=== PATIENT | female | born 1995 | race Caucasian/White ===

== ENCOUNTER → 2017-11-08 12:02 | Outpatient (CLI) | payer BC, SELFPAY ==
[2017-11-08 13:53] LABS: Absolute Lymphocyte Count 1.78 X10^3/ul (0.83-4.51); Basophil# 0.02 X10^3/uL; Basophil% 0.3 % (0-1); Eosinophil# 0.14 X10^3/uL; Eosinophils% 2.2 % (0-5); Hemoglobin 15.6 g/dl (12.0-15.0); Lymphocyte # 1.78 X10^3/ul (4.0); Lymphocyte % 27.9 % (19-41); Mean Corp Hgb Conc 33.9 g/gl (32-36); Mean Corpuscular Hgb 30.9 pg (27.0-32.0); Mean Corpuscular Volume 91.1 fL (81-99); Mean Platelet Vol. 10.7 fl (6.2-12.0); Monocyte# 0.38 X10^3/uL; Neutrophil # 4.04 X10^3/uL (2.7-7.7); Neutrophil % 63.4 % (47-70); POSITIVE COUNT NO; POSITIVE DIFFERENTIAL NO; POSITIVE MORPHOLOGY NO; Platelet Count 219 K/mm3 (150-450); RBC Distribution Width CV 11.7 % (11.6-14.6); RBC Distribution Width SD 39.1 fl (35.1-43.9); Red Blood Count 5.05 M/mm3 (4.2-5.4); White Blood Count 6.4 K/mm3 (4.4-11.0)
[2017-11-08 14:08] LABS: ALB/GLOB Ratio 1.1 RATIO (0.9-2.4); AST(SGOT) 15 U/L (15-37); Alanine Aminotransfer ALT/SGPT 25 U/L (13-56); Albumin, Serum 4.1 g/dL (3.2-5.0); Alkaline Phosphatase 102 U/L (45-117); Anion Gap 9 (5-15); BUN 10 mg/dL (7-18); BUN/Creat Ratio 9.6 RATIO (10-20); Calcium,Total 8.9 mg/dL (8.5-10.1); Chloride 107 mmol/L (98-107); Creatinine, Serum 1.04 mg/dL (0.55-1.02); EST Glomerular Filtration Rate 72 mL/min (>60); Est Glom Filt Rate - Afr Amer 87 mL/min (>60); Ferritin 28 ng/mL (8-252); Globulin 3.9 g/dL (2.2-4.2); Glucose 83 mg/dL (74-106); Potassium 4.2 mmol/L (3.5-5.1); Sodium Level 141 mmol/L (136-145); T4 Free Direct 0.98 ng/dL (0.76-1.46)
[2017-11-09 09:08] LABS: T3 Total - Triiodothyronine 0.93 ng/mL (0.6-1.81)
== END ==
LOC: MTLAB 12:04
PROVIDERS: Family Provider Pediatrics; PCP Pediatrics; Visit Provider Dermatology Pediatric Dermatology
DX: L65.0 Telogen effluvium (principal); L64.8 Other androgenic alopecia
CPT/HCPCS: 36415; 80053; 82728; 84439; 84443; 84480; 85025

== ENCOUNTER 2018-04-17 15:18 | Emergency (ER) | payer BC, SELFPAY ==
[2018-04-17 15:19] VITALS: BP 131/79; PULSE 89; RESP 16; TEMP 37.3; O2SAT 98; BMI 28.5
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
[2018-04-17] MEDS: Ibuprofen 600 MG Tablet PO (16:11)
[2018-04-17 16:12] VITALS: BP 131/79; PULSE 89; RESP 18
== END 2018-04-17 16:23 | disposition home or self-care (01) ==
LOC: ED 16:16
PROVIDERS: Emergency Provider Emergency Medicine; Family Provider Pediatrics; PCP Pediatrics
DX: S16.1XXA Strain of muscle, fascia and tendon at neck level, initial encounter (principal); S20.312A Abrasion of left front wall of thorax, initial encounter; V43.53XA Car driver injured in collision with pick-up truck in traffic accident, initial encounter; Y93.I9 Activity, other involving external motion; Y92.410 Unspecified street and highway as the place of occurrence of the external cause; Y99.8 Other external cause status
CPT/HCPCS: 99283

== ENCOUNTER 2019-05-13 13:37 | Emergency (ER) | payer BC, SELFPAY ==
[2019-05-13 13:37] VITALS: BP 127/74; PULSE 106; RESP 18; TEMP 36.2; O2SAT 96; BMI 29.3
--- NOTE | 2019-05-13 13:51 | CT_ITS ---
STUDY: CT ABDOMEN AND PELVIS WITHOUT CONTRAST REASON FOR EXAM: Female, 23 years old. RIGHT FLANK PAIN -- HX-KS, OPEN HEART RADIATION DOSAGE (If Supplied By Facility): CTDIvol = ( 8.70 ) mGy, DLP = ( 437.08 ) mGycm TECHNIQUE: Transaxial images were obtained from the dome of the diaphragm to the symphysis pubis without oral contrast, and without intravenous contrast. Sagittal and coronal images were reconstructed. Individualized dose optimization techniques were used for this CT. COMPARISON: None. FINDINGS: The visualized lung bases are unremarkable. Small calcification projecting in the right ventricle is stable. Normal liver. Normal gallbladder and extrahepatic biliary system. Normal spleen. Normal pancreas. Normal bilateral adrenal glands. Trace right hydronephrosis with a 4 mm calculus in the proximal right ureter (evident on administration vice president topogram at L3 transverse process level). Additional punctate calculus of the right kidney evident on image 71 measures 2 mm. Left kidney is unremarkable without demonstrated hydronephrosis. Normal visualized stomach. Normal small intestine. Normal colon. The appendix is visualized and appears normal. Normal abdominal aorta. Normal inferior vena cava. Normal retroperitoneum. Normal urinary bladder. IUD is noted within the uterus. Naval ring noted. Normal osseous structures. CT/Abdomen/Pelvis without Cont IMPRESSION: 1. Proximal right ureter calculus (4 mm) with trace hydronephrosis. 2. Additional 2 mm right renal collecting system/calyceal calculus. Electronically Signed: Adelfo Sylvester MD ([place]) at 15:33 EST , Service support ,
--- NOTE | 2019-05-13 14:22 | ED.DCSUM_ITS ---
History of Present Illness Chief Complaint: Flank Pain Informant: Patient Onset: Weeks Maximum Severity: Mild Narrative: Patient presents complaining of a mild right flank pain for about 2 weeks, her periods have been on time her bowel bladder habits have generally normal. She decayed she believes is from a kidney stone that she had kidney stones 2 or 3 times in the past and she has passed them each time did not follow-up with urology as instructed. The pain persisted and she presents for evaluation her menstrual cycle terminated 3 days ago she denies any possibly she is otherwise not ill normal bowel bladder habits and no other history Past Medical History - Allergies and Home Meds Allergies/Adverse Reactions: Allergies No Known Allergies Allergy (Verified 05/13/19 13:39) Primary Care Physician: Omar Phillips MD [Primary Care Provider] - Past Medical History: - Surgical History: - - Repair of congenital heart disease Smoking Status: Never smoker Review of Systems ROS: - Kidney stones General: Denies: Chills, Fever, Sweats Eyes: Denies: Visual changes - bilaterally, Diplopia ENT: Denies: Rhinorrhea, Sore throat Cardiovascular: Denies: Chest pain, Palpitations Respiratory: Denies: Dyspnea, Cough, Dyspnea on exertion Gastrointestinal: Denies: Abdominal pain, Nausea, Vomiting, Diarrhea, Melena, Hematochezia Genitourinary: Denies: Dysuria, Hematuria, Frequency Musculoskeletal: Reports: Back pain. Denies: Extremity Pain Skin: Denies: Rash, Wounds Neurological: Denies: Headache, Weakness, Numbness Physical Exam Vital Signs/Narrative: Vital Signs Temp Pulse Resp BP Pulse Ox 05/13/19 13:37 97.1 F L 106 H 18 127/74 H 96 General: Well nourished, Well developed, No Acute Distress Head: Normocephalic, Atraumatic Eyes: Perrl, EOMI ENT: Moist mucous membranes, No rhinorrhea Neck: Supple, Nontender Cardiovascular: Regular rate, Regular rhythm, No murmurs Respiratory: No distress, CTA bilaterally, Chest nontender Abdomen: Soft, Nontender, Nondistended, Normal bowel sounds Back: Nontender, Normal Inspection Extremities: Nontender, No edema Skin: Normal color, No rash Neurological: Alert, Oriented x3, Cranial nerves II-XII grossly intact, Normal Strength, Normal Sensation Psychological: Normal affect, Normal Mood Diagnostic/Tx/Re-eval - Medical Decision Making Patient is a very mild pain to the right upper back, there is no abdominal pain she denies as she just completed her normal menstrual cycle at this time screening ED evaluation CT pain management The patient screening labs are generally unremarkable except there is signs of hematuria on the UA the abdominal flank CT and pulmonary report appears to reveal hydronephrosis and kidney stone on the right Evaluation she is resting company in the bed explained the test results to her the concept of kidney stone hydronephrosis she will be started on Naprosyn and [place] as needed she has never followed up with urology as instructed but she is instructed follow-up with urology and she states she will do so and return for change in symptoms, the final CT report will be on the computer when it is available Home stable Final impression right flank pain, kidney stone hematuria ED Disposition - Plan for ED Patient: Diagnosis: Kidney stone on right side Instructions: KIDNEY STONE w/ Colic, FLANK PAIN, Uncertain Cause Prescriptions: Naproxen [Naprosyn] 500 mg PO BID PRN #20 tab Prescription Printed Hydrocodone Bitart/Apap 5-325 [[place] 5MG-325MG] 1 tab PO Q6H PRN PRN 3 Days #10 tab PRN Reason: Pain Prescription Printed Referrals: Omar Phillips MD [Primary Care Provider] -
[2019-05-13] MEDS: 0.9% Normal Saline 1,000 ML 250 ML IV (14:24)
[2019-05-13 14:29] LABS: Mucous, Urine 0 SEEN /hpf (<or=2+); Squamous Epithelial Cells - UA 0 SEEN /hpf (5-10)
[2019-05-13] MEDS: morphine 8 MG/ML Syringe IV (14:29)
[2019-05-13] MEDS: Ondansetron 4 MG/2 ML Vial IV (14:29)
[2019-05-13 14:30] LABS: Absolute Neutrophil Count 5.2 X10^3/uL (2.0-7.7); Basophil# 0.04 X10^3/uL; Basophil% 0.5 % (0-1); Eosinophil# 0.25 X10^3/uL; Eosinophils% 3.1 % (0-5); Hematocrit 47.2 % (37-47); Hemoglobin 15.8 g/dL (12.0-15.0); Lymphocyte % 23.4 % (19-41); Mean Corp Hgb Conc 33.5 g/dL (32-36); Mean Corpuscular Hgb 31.5 pg (27.0-32.0); Mean Platelet Vol. 10.2 fl (6.2-12.0); Monocyte# 0.71 X10^3/uL; Monocyte% 8.8 % (0-10); NRBC Flagged by Analyzer 0 % (0-5); Neutrophil # 5.19 X10^3/uL (2.7-7.7); Platelet Count 250 K/mm3 (150-450); RBC Distribution Width CV 11.7 % (11.6-14.6); RBC Distribution Width SD 40.1 fl (35.1-43.9); Red Blood Count 5.02 M/mm3 (4.2-5.4); White Blood Count 8.1 K/mm3 (4.4-11.0)
[2019-05-13 14:31] LABS: Color, Urine Brown (Yellow); Glucose, Dipstick Normal (Normal); Ketone-Dipstick 5 mg/dl (Negative); Leukocyte Esterase-Dipstick 25 /ul (Negative); Nitrite-Dipstick Positive (Negative); Occult Blood-Urine 250 /ul (Negative); Protein-Dipstick 30 mg/dl (Negative); Specific Gravity, Urine 1.025 (1.002-1.030); Urine Bilirubin Dipstick Negative (Negative); Urine Clarity Cloudy (Clear); Urine Urobilinogen Normal (Normal)
[2019-05-13 14:35] LABS: Internal QC Validated? YES +Cl - CLEAR BKGD; Pregnancy, Serum, hCG Quali. NEGATIVE Negative
[2019-05-13 14:41] LABS: Bacteria 2+ /hpf (None Seen); Calcium Oxalate Crystals Ur 1+ /hpf (<or=2+); Red Blood Cells-Urine 50-100 SEEN /hpf (0-5); White Blood Cells 0-5 SEEN /hpf (0-5); Yeast-Urine 3+ /hpf (None Seen)
[2019-05-13 14:43] LABS: Anion Gap 6 (5-15); BUN 12 mg/dL (7-18); BUN/Creat Ratio 10.5 RATIO (10-20); Calcium,Total 9.5 mg/dL (8.5-10.1); Chloride 110 mmol/L (98-107); Creatinine, Serum 1.14 mg/dL (0.55-1.02); EST Glomerular Filtration Rate 64 mL/min (>60); Est Glom Filt Rate - Afr Amer 77 mL/min (>60); Estimated Creatinine Clearance 64.57 ml/min; Glucose 86 mg/dL (74-106); Potassium 4.1 mmol/L (3.5-5.1); Sodium Level 139 mmol/L (136-145)
[2019-05-13 15:14] VITALS: BP 108/62; PULSE 67; RESP 15
[2019-05-13] MEDS: 0.9% Normal Saline 1,000 ML 999 ML IV (15:14)
--- NOTE | 2019-05-13 15:35 | ED.VISSUMM ---
- ER Visit Summary Date of Service: 05/13/19 Chief Complaint: [] History of Present Illness: The patient is a 23 F [] Physical Examination: [] Test Results: [] Emergency Department Course and Treatment: [] Treatment Plan: [] Disposition: [] Impression: [] This note was generated with [employer] dictation software. It may contain incorrect words, spelling, and punctuation that were not noted in review of the chart prior to signing ED Disposition - Plan for ED Patient: Diagnosis: Kidney stone on right side Instructions: FLANK PAIN, Uncertain Cause, KIDNEY STONE w/ Colic Prescriptions: Naproxen [Naprosyn] 500 mg PO BID PRN #20 tab Prescription Printed Hydrocodone Bitart/Apap 5-325 [[place] 5MG-325MG] 1 tab PO Q6H PRN PRN 3 Days #10 tab PRN Reason: Pain Prescription Printed Referrals: Omar Phillips MD [Primary Care Provider] - Remy Esteban MD [STAFF PHYSICIAN] -
--- NOTE | 2019-05-13 15:44 | ED.DEP ---
ED Disposition - Plan for ED Patient: Diagnosis: Kidney stone on right side Instructions: FLANK PAIN, Uncertain Cause, KIDNEY STONE w/ Colic Prescriptions: Tamsulosin HCl [Flomax] 0.4 mg PO DAILY #7 cap Prescription Printed Naproxen [Naprosyn] 500 mg PO BID PRN #20 tab Prescription Printed Hydrocodone Bitart/Apap 5-325 [[place] 5MG-325MG] 1 tab PO Q6H PRN PRN 3 Days #10 tab PRN Reason: Pain Prescription Printed Referrals: Remy Esteban MD [STAFF PHYSICIAN] - Omar Phillips MD [Primary Care Provider] -
[2019-05-13 16:00] VITALS: PULSE 70; RESP 16
== END 2019-05-13 16:02 | disposition home or self-care (01) ==
PROVIDERS: Emergency Provider Emergency Medicine; PCP Family Medicine
DX: N13.2 Hydronephrosis with renal and ureteral calculous obstruction (principal); R31.9 Hematuria, unspecified; Z87.442 Personal history of urinary calculi
CPT/HCPCS: 74176; 80048; 81001; 84703; 85025; 96361; 96374; 96375; 99283; J7030; A4216; J2405

== ENCOUNTER 2021-03-27 10:16 | Emergency (ER) | payer OTHER, SELFPAY ==
[2021-03-27 10:17] VITALS: BP 141/79; PULSE 83; RESP 17; TEMP 36.1; O2SAT 98; BMI 22.1
--- NOTE | 2021-03-27 11:05 | EDS_ITS ---
HPI History of Present Illness Chief Complaint: Syncope Narrative Narrative: Patient presents because of syncopal episode that she experienced last evening at around 8:15 PM, approximately 15 hours ago. She states that she has had problems with syncope over the last 2 years. The year before, she only passed out a few times. However, she states that she passed out 3-4 times this year. When she passed out last evening, she did not injure herself. She presents saying I think I am anemic. She does have an IUD in place, and used to have regular menses, however she has not had menstruation in the last month. She denies any prodromal symptoms such as chest pain or shortness of breath, but states that when she stands up at times she feels lightheaded, and it takes her approximately 15 seconds to steady herself when she stands up. At times she passes out for 1 to 2 seconds, but last evening she must of only passed out for 5 to 6 seconds. She has not followed up with her primary care physician regarding this. She denies any fevers or chills, no nausea or vomiting, no fernando rtness of breath, no other symptoms. Of note, she states that she did test positive for Covid on Tuesday, approximately 7 days ago. Her only symptom was lost of taste and smell which she is regaining. 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 HEENT: No sore throat. No neck pain. No loss of vision. No rhinorrhea. Cardiovascular: No chest pain. No palpitations. No pedal edema. Respiratory: No cough, no shortness of breath. Abdominal: No abdominal pain. No nausea. No vomiting. Genitourinary: No dysuria. No hematuria. Musculoskeletal: No myalgias. No arthralgias. Neurologic: No headaches. No dizziness. Occasion lightheadedness. Positive syncopal episode for 5 to 6 seconds yesterday. Skin: No rash. No change in color. Psychiatric: No depression. No anxiety. I think I am anemic. EXAM Physical Exam Narrative Exam Narrative: Afebrile. Vital signs noted. HEENT: Normocephalic. Atraumatic. PERRL, EOMI. Neck soft and supple. No point tenderness or step off. Cardiovascular: Regular rate and rhythm. No murmurs, rubs, or gallops appreciated. Respiratory: No tachypnea. Lungs clear to auscultation bilaterally. Gastrointestinal: Abdomen soft, nontender, with normoactive bowel sounds. No rebound or guarding. Neurological: Awake. Alert. Nonfocal, nonlateralizing. Able to transfer from chair to bed and ambulate. Skin: No rash. Normal color. No pallor. Musculoskeletal: No pedal edema. Full range of motion extremities. Const Vital Signs: 03/27/21 10:17 03/27/21 12:14 03/27/21 12:18 Temperature 96.9 F L Temperature Source Temporal Pulse Rate 83 74 Pulse Rate [Lying] 58 L Pulse Rate [Sitting] 64 Pulse Rate [Standing] 74 Respiratory Rate 17 16 Blood Pressure 141/79 H 128/64 H Blood Pressure [Lying] 113/64 Blood Pressure [Sitting] 113/66 Blood Pressure [Standing] 128/64 H Blood Pressure Mean 99 85 Blood Pressure Mean [Lying] 80 Blood Pressure Mean [Sitting] 81 Blood Pressure Mean [Standing] 85 Pulse Ox 98 98 Oxygen Delivery Method Room Air Room Air MDM MDM MDM Narrative Medical decision making narrative: Comprehensive work-up was pursued. EKG demonstrates normal sinus rhythm/bradycardia at 57 bpm with a sinus arrhythmia, no acute ST changes. QTc is normal at 381. She is not anemic and has a hemoglobin of 16.4, no elevated white count. Electrolyte panel shows chloride slightly elevated at 108, otherwise unremarkable. Serum is negative. Urinalysis is also negative. At this point in time, I am unsure as to the cause of her reported syncope, but I feel that she can be discharged safely home with follow-up. Return instructions to the emergency department were reviewed. Disposition is discharged home in stable condition. Lab Data Attestation: I reviewed the patient's lab results. Labs: Laboratory Results - last 24 hr 03/27/21 03/27/21 03/27/21 11:30 11:30 11:30 WBC 5.8 RBC 5.18 Hgb 16.4 H Hct 47.9 H MCV 92.5 MCH 31.7 MCHC 34.2 RDW Std Deviation 39.5 RDW Coeff of [place] 11.6 Plt Count 231 MPV 10.7 Immature Gran % (Auto) 0.300 Neut % (Auto) 68.9 Lymph % (Auto) 22.8 [place] % (Auto) 5.4 Eos % (Auto) 2.3 Baso % (Auto) 0.3 Absolute Neuts (auto) 4.0 Absolute Lymphs (auto) 1.31 Nucleated RBC % 0 Sodium 138 Potassium 3.6 Chloride 108 H Carbon Dioxide 25.0 Anion Gap 5 BUN 9 Creatinine 0.90 Estim Creat Clear Calc 80.42 Est GFR (MDRD) Af Amer 100 Est GFR (MDRD) Non-Af 82 BUN/Creatinine Ratio 10.0 Glucose 100 Calcium 9.5 Serum , Qual NEGATIVE Urine Color Urine Clarity Urine pH Ur Specific [place] Urine Protein Urine Glucose (UA) Urine Ketones Urine Occult Blood Urine Nitrite Urine Bilirubin Urine Urobilinogen Ur Leukocyte Esterase Urine RBC Urine WBC Ur Squamous Epith Cells Urine Bacteria Urine Mucus 03/27/21 11:45 WBC RBC Hgb Hct MCV MCH MCHC RDW Std Deviation RDW Coeff of [place] Plt Count MPV Immature Gran % (Auto) Neut % (Auto) Lymph % (Auto) [place]kinson % (Auto) Eos % (Auto) Baso % (Auto) Absolute Neuts (auto) Absolute Lymphs (auto) Nucleated RBC % Sodium Potassium Chloride Carbon Dioxide Anion Gap BUN Creatinine Estim Creat Clear Calc Est GFR (MDRD) Af Amer Est GFR (MDRD) Non-Af BUN/Creatinine Ratio Glucose Calcium Serum , Qual Urine Color Yellow Urine Clarity Clear Urine pH 6.0 Ur Specific [place] 1.010 Urine Protein Negative Urine Glucose (UA) Normal Urine Ketones Negative Urine Occult Blood Negative Urine Nitrite Negative Urine Bilirubin Negative Urine Urobilinogen Normal Ur Leukocyte Esterase Negative Urine RBC 0 SEEN Urine WBC 0 SEEN Ur Squamous Epith Cells 0-5 SEEN Urine Bacteria 0 SEEN Urine Mucus 0 SEEN Discharge Plan Triage Chief Complaint: Syncope ED Provider: Chidi Marroquin Dx/Rx/DC Orders Clinical Impression: Syncope Instructions: ED Fainting, Uncertain Cause Prescriptions: No Action Mirena 20 mcg/24 hours (6 yrs) 52 mg intrauterine device 1 device intrauterine ONCE RF: 0 Primary Care Provider: Dino Mills Referrals: Dino Mills MD [Primary Care Provider] - 03/30/21 Disposition Disposition: Home, Self Care
--- NOTE | 2021-03-27 11:05 | EKG12_ITS ---
Test Reason : SYNCOPE Blood Pressure : / mmHG Vent. Rate : 057 BPM Atrial Rate : 057 BPM P-R Int : 150 ms QRS Dur : 096 ms QT Int : 392 ms P-R-T Axes : 065 074 052 degrees QTc Int : 381 ms Sinus bradycardia with sinus arrhythmia Otherwise normal ECG Confirmed by RUBIO TIAN, KEEGAN ([id number]), slot editor THERESA EDWARDS ([id number]) on 03/30/2021 9:08:10 AM Referred By: JUAN RAMON Confirmed By:RICKY BERGERON MD
[2021-03-27] MEDS: 0.9% Normal Saline 1,000 ML 1000 ML IV (11:42)
[2021-03-27 11:44] LABS: Absolute Lymphocyte Count 1.31 X10^3/uL (0.83-4.51); Basophil# 0.02 X10^3/uL; Basophil% 0.3 % (0-1); Eosinophil# 0.13 X10^3/uL; Eosinophils% 2.3 % (0-5); Hematocrit 47.9 % (37-47); Hemoglobin 16.4 g/dL (12.0-15.0); Lymphocyte # 1.31 X10^3/ul (0.83-4.51); Lymphocyte % 22.8 % (19-41); Mean Corp Hgb Conc 34.2 g/dL (32-36); Mean Corpuscular Hgb 31.7 pg (27.0-32.0); Mean Corpuscular Volume 92.5 fL (81-99); Mean Platelet Vol. 10.7 fl (6.2-12.0); Monocyte# 0.31 X10^3/uL; Monocyte% 5.4 % (0-10); NRBC Flagged by Analyzer 0 % (0-5); Neutrophil # 3.96 X10^3/uL (2.7-7.7); Neutrophil % 68.9 % (47-70); Platelet Count 231 K/mm3 (150-450); RBC Distribution Width CV 11.6 % (11.6-14.6); RBC Distribution Width SD 39.5 fl (35.1-43.9); Red Blood Count 5.18 M/mm3 (4.2-5.4); White Blood Count 5.8 K/mm3 (4.4-11.0)
[2021-03-27 11:48] LABS: Internal QC Validated? YES +Cl - CLEAR BKGD; Pregnancy, Serum, hCG Quali. NEGATIVE Negative
[2021-03-27 11:49] LABS: Bacteria 0 SEEN /hpf (None Seen); Mucous, Urine 0 SEEN /hpf (<or=2+); Red Blood Cells-Urine 0 SEEN /hpf (0-5); White Blood Cells 0 SEEN /hpf (0-5)
[2021-03-27 11:52] LABS: Color, Urine Yellow (Yellow); Glucose, Dipstick Normal (Normal); Ketone-Dipstick Negative (Negative); Leukocyte Esterase-Dipstick Negative /ul (Negative); Nitrite-Dipstick Negative (Negative); Occult Blood-Urine Negative /ul (Negative); Protein-Dipstick Negative (Negative); Urine Bilirubin Dipstick Negative (Negative); Urine Clarity Clear (Clear); Urine Urobilinogen Normal (Normal)
[2021-03-27 11:53] LABS: Anion Gap 5 (5-15); BUN 9 mg/dL (7-18); Calcium,Total 9.5 mg/dL (8.5-10.1); Chloride 108 mmol/L (98-107); EST Glomerular Filtration Rate 82 mL/min (>60); Est Glom Filt Rate - Afr Amer 100 mL/min (>60); Estimated Creatinine Clearance 80.42 ml/min; Glucose 100 mg/dL (74-106); Potassium 3.6 mmol/L (3.5-5.1); Sodium Level 138 mmol/L (136-145)
[2021-03-27 12:00] LABS: Squamous Epithelial Cells - UA 0-5 SEEN /hpf (5-10)
[2021-03-27 12:14] VITALS: BP 113/64; BP 113/66; BP 128/64; PULSE 58; PULSE 64; PULSE 74
[2021-03-27 12:18] VITALS: BP 128/64; PULSE 74; RESP 16; O2SAT 98
== END 2021-03-27 13:24 | disposition home or self-care (01) ==
PROVIDERS: Emergency Provider Emergency Medicine; PCP Family Medicine
DX: R55 Syncope and collapse (principal); F17.290 Nicotine dependence, other tobacco product, uncomplicated
CPT/HCPCS: 80048; 81001; 84703; 85025; 93005; 96360; 99283; J7030; A4216